=== PATIENT | female | born 1985 | race Caucasian/White ===

== ENCOUNTER 2019-05-12 12:46 | Emergency (ER) | payer MEDICARE, MEDICAID, SELFPAY ==
[2019-05-12 13:01] VITALS: BP 131/76; PULSE 74; RESP 18; TEMP 37.1; O2SAT 97; BMI 22.3
--- NOTE | 2019-05-12 13:09 | ED_ITS ---
Entered by Rika Wang, acting as scribe for Ministerio Marcum DO May 12, 2019 12:46 HPI - Headache General: Chief Complaint: Headache Stated Complaint: H/A Time Seen by Provider: 05/12/19 13:09 PFSH ED PFSH: Social History Smoking and tobacco status: current every day smoker Course Vital Signs: Vital signs: Vital Signs Temperature 98.8 F 05/12/19 13:01 Pulse Rate 74 05/12/19 13:01 Respiratory Rate 18 05/12/19 13:01 Blood Pressure 131/76 05/12/19 13:01 Pulse Oximetry 97 05/12/19 13:01 Coding Level of Care Code ED Decator Operator for Amisha Holliday
--- NOTE | 2019-05-12 13:09 | ED_ITS ---
Entered by Nilda Oconnor, acting as scribe for May 12, 2019 12:46 HPI - Headache General: Chief Complaint: Headache Stated Complaint: H/A Time Seen by Provider: 05/12/19 13:09 History of Present Illness: HPI Narrative: 33 yo female presents to ED with complaints of a headache, nausea and vomiting, The patient states she has not been feeling well and now she has a migraine. Her family states the patient has knots on the back of her neck. The patient states she has a history of migraines and MS. She said today's migraine is similar to those she has had in the past. She said the migraine began about 0700 this morning. MD elicited complaint: migraine Pertinent past history: migraines and other (MS) Onset (ago): hour(s) (6) Time: 07:00 Onset description: suddenly and on awakening Location: diffuse Severity: severe Quality & Timing: throbbing, progressively worsening and similar to previous headaches Exacerbating factors: exertion and movement of head/neck Relieving factors: nothing Context: occurred at rest Associated symptoms: Reports nausea, vomiting and weakness; Deny chest pain, confusion, diaphoresis, fever(s), malaise, pre-syncope, rash or syncope Treatments prior to arrival: none Review of Systems General: Reports: other (negative unless marked) Const: Denies: fever, chills, body aches, fatigue, malaise or diaphoresis Eyes: Denies: change in vision or blurry vision ENMT: Denies: throat pain, painful swallowing, hoarseness, ear pain, ear discharge, Change in hearing or nasal discharge Card: Denies: chest pain, palpitations, irregular heart rhythm, syncope, pre- syncope, shortness of breath on exertion or shortness of breath when lying down Resp: Denies: shortness of breath, productive cough, non-productive cough, wheezing, coughing up blood or chest congestion GI: Reports: nausea and vomiting : Denies: flank pain, painful urination, urinary frequency, urinary urgency, decreased urine ouput, urinary incontinence or blood in urine Musc: Denies: back pain, extremity pain, extremity swelling, joint pain, joint swelling, joint warmth or joint stiffness Skin/Breast: Denies: rash, skin tenderness or yellow skin Neuro: Denies: numbness in extremities, weakness in extremities, changes in sensation, lack of coordination, difficulty walking, dizziness, vertigo or confusion Endo: Denies: excessive thirst, tired all the time, cold intolerance, excessive sweating, flushing or hot flashes Ray/Lymph: Denies: easy bruising, easy bleeding, petechiae or enlarged lymph nodes All/Imm: Denies: hives, throat swelling, tongue swelling, facial swelling or acute wheezing PFSH ED PFSH: Social History Smoking and tobacco status: current every day smoker Physical Exam Const: COMMON NORMALS: oriented x3, no limitations, healthy appearing and well nourished EXAM LIMITATIONS: no altered mental status GENERAL APPEARANCE: cooperative, well kempt and well developed ORIENTATION/CONSCIOUSNESS: Yes awake HENMT: COMMON NORMALS: normocephalic, head/scalp atraumatic, hearing grossly normal bilaterally, external ears normal, EAC's normal, external nose normal and moist oral mucous membranes HEAD & SCALP: normal to inspection, normocephalic and atraumatic FACE & SINUS: normal facial exam and face symmetric NOSE: external nose normal and nares normal EXTERNAL EAR: Yes external ears normal EXTERNAL AUDITORY CANAL: EAC's normal MOUTH: oral and palatal mucosa normal and tongue normal Eye: COMMON NORMALS: PERRL, EOMs intact bilaterally, conjunctivae normal and no scleral icterus GENERAL EYE: normal appearance of both eyes and normal light reflex CONJUNCTIVA: Yes conjunctivae normal SCLERA: sclerae normal CORNEA: Yes corneas normal PUPIL: Yes PERRL DIRECT OPHTHALMOSCOPY: Yes normal light reflex Neck/C-Spine: COMMON NORMALS: full ROM, no lymphadenopathy, supple, no meningeal signs and no JVD GENERAL: Yes normal visual inspection and Yes trachea midline CERVICAL SPINE: Yes cervical ROM normal Chest: COMMONS NORMALS: inspection of chest normal and palpation of chest normal Resp: COMMON NORMALS: normal respiratory effort, no retractions, no use of accessory muscles and clear to auscultation bilaterally EFFORT & INSPECTION: Yes able to speak in complete sentences AUSCULTATION: clear to auscultation bilaterally Cardio: COMMON NORMALS: no JVD, regular rate, regular rhythm, S1 normal heart sound, S2 normal heart sound, no gallops, no clicks, no murmurs and no rub JUGULAR VENOUS DISTENTION: no JVD RATE: regular rate RHYTHM: regular rhythm HEART SOUNDS: S1 normal and S2 normal GI: COMMON NORMALS: soft to palpation, non-tender, no hepatosplenomegaly and no masses INSPECTION: Yes normal to inspection PALPATION: Yes soft and Yes no hepatosplenomegaly : COMMON NORMALS: Yes no CVA tenderness BLADDER/KIDNEY EXAM: Yes no CVA tenderness Back/Pelvis: COMMON NORMALS: no CVA tenderness, thoracic and lumbar spine normal to inspection, no thoracic nor lumbar tenderness and thoraco-lumbar ROM normal Extremity: COMMON NORMALS: normal to inspection, full ROM, normal capillary refill, no joint enlargement, no clubbing, cyanosis or edema and no calf tenderness Neuro: COMMON NORMALS: oriented x3, CN's II-XII intact bilaterally, moves all extremities, no focal motor deficits and no sensory deficits noted MENINGEAL SIGNS: Yes no meningeal signs Psych: COMMON NORMALS: mental status grossly normal, thought process normal, cooperative, affect normal, speech normal and activity/motor behavior normal APPEARANCE: Yes well kempt SPEECH: Yes normal speech THOUGHT PROCESS: normal thought process Skin: COMMON NORMALS: no rashes or lesions noted, skin turgor normal, no jaundice, no petechiae and no mottling GENERAL SKIN EXAM: no rashes or lesions noted and turgor normal Course Vital Signs: Vital signs: Vital Signs Temperature 98.8 F 05/12/19 13:01 Pulse Rate 74 05/12/19 13:01 Respiratory Rate 16 05/12/19 15:59 Blood Pressure 131/76 05/12/19 13:01 Pulse Oximetry 97 05/12/19 13:01 MDM - Headache MDM Narrative: Medical decision making narrative: The patient symptoms have completely resolved at this time. She Mclean has a headache and is no longer nauseated. Her lymphadenopathy which is been going on for quite some time is not caused by mono or strep at this time. The patient has no sign or symptom of retropharyngeal or peritonsillar abscess. She states the lymph nodes of just been present for some time as she is currently under the outpatient work-up for this. She agrees to return should her symptoms change or worsen but at this time she only wants her headache to resolve and now that it has she is ready to be discharged. Lab Data: Labs: Lab Results 05/12/19 05/12/19 05/12/19 Range/Units 13:35 13:43 13:43 WBC 13.1 H (4.0-10.0) 10^3/ uL RBC 4.60 (4.1-5.3) 10^6/u L Hgb 12.9 (11.5-15.3) g/dL Hct 38.8 (37.0-47.0) % MCV 84.3 (81-99) fL MCH 28.0 (28.0-34.0) pg MCHC 33.2 (30.0-36.0) g/dL RDW 12.1 (12.1-15.1) % Plt Count 449 H (130-400) 10^3/c mm MPV 9.1 (7.4-10.4) fL Neut % (Auto) 92.7 % Lymph % (Auto) 4.4 % Gage % (Auto) 2.4 % Eos % (Auto) 0.0 % Baso % (Auto) 0.2 % Neut # (Auto) 12.1 H (1.8-7.7) 10^3/u L Lymph # (Auto) 0.6 L (0.8-4.8) 10^3/u L Gage # (Auto) 0.3 (0.2-0.9) 10^3/u L Eos # (Auto) 0.0 (0.0-0.8) 10^3/u L Baso # (Auto) 0.0 (0.0-0.1) 10^3/u L Nucleated RBC % (a uto) 0 % Nucleated RBCs # 0.0 /100WBC Sodium (136-145) mmol/L Potassium (3.5-5.1) mmol/L Chloride (98-107) mmol/L Carbon Dioxide (22-29) mmol/L Anion Gap (5-19) BUN (6-20) mg/dL Creatinine (0.5-0.9) mg/dL GFR Calculation (90-130) mL/min Glucose (65-115) mg/dL Calculated Osmolal ity (285-295) mOsm/k g Calcium (8.5-10.5) mg/dL Magnesium (1.7-2.3) mg/dL Total Bilirubin (0.15-1.2) mg/dL AST (0-32) U/L ALT (0-33) U/L Alkaline Phosphata se (35-105) IU/L Total Protein (6.6-8.7) g/dL Albumin (3.5-5.2) g/dL Globulin (1.3-4.6) g/dL HCG, Qual (Negative) Monoscreen Negative (Negative) Influenza Type A A g Negative (Negative) POC Influenza B Ag Negative (Negative) Group A Strep Rapi d (Negative) 05/12/19 05/12/19 05/12/19 Range/Units 13:43 13:43 15:25 WBC (4.0-10.0) 10^3/ uL RBC (4.1-5.3) 10^6/u L Hgb (11.5-15.3) g/dL Hct (37.0-47.0) % MCV (81-99) fL MCH (28.0-34.0) pg MCHC (30.0-36.0) g/dL RDW (12.1-15.1) % Plt Count (130-400) 10^3/c mm MPV (7.4-10.4) fL Neut % (Auto) % Lymph % (Auto) % Gage % (Auto) % Eos % (Auto) % Baso % (Auto) % Neut # (Auto) (1.8-7.7) 10^3/u L Lymph # (Auto) (0.8-4.8) 10^3/u L Gage # (Auto) (0.2-0.9) 10^3/u L Eos # (Auto) (0.0-0.8) 10^3/u L Baso # (Auto) (0.0-0.1) 10^3/u L Nucleated RBC % (a uto) % Nucleated RBCs # /100WBC Sodium 135 L (136-145) mmol/L Potassium 3.0 L (3.5-5.1) mmol/L Chloride 92 L (98-107) mmol/L Carbon Dioxide 31 H (22-29) mmol/L Anion Gap 15.0 (5-19) BUN 5 L (6-20) mg/dL Creatinine 0.5 (0.5-0.9) mg/dL GFR Calculation 140.4 H (90-130) mL/min Glucose 162 H (65-115) mg/dL Calculated Osmolal ity 279 L (285-295) mOsm/k g Calcium 9.5 (8.5-10.5) mg/dL Magnesium 2.0 (1.7-2.3) mg/dL Total Bilirubin 0.4 (0.15-1.2) mg/dL AST 13 (0-32) U/L ALT 7 (0-33) U/L Alkaline Phosphata se 91 (35-105) IU/L Total Protein 7.2 (6.6-8.7) g/dL Albumin 4.2 (3.5-5.2) g/dL Globulin 3.0 (1.3-4.6) g/dL HCG, Qual Negative (Negative) Monoscreen (Negative) Influenza Type A A g (Negative) POC Influenza B Ag (Negative) Group A Strep Rapi d Negative (Negative) Imaging Data^: CT Head: Radiologist's impression: [place] [address] CT Scan Report Signed Patient: Gavin Lockhart #: [id number] : 1985Acct#:[id number] Age/Sex: 33 / FADM Date: 05/12/19 Loc: ERRoom/Bed: Attending Dr: Ordering Provider/Ordering MD: Nell Olson DO Date of Service: 05/12/19 Procedure(s): CT head wo con* [id number] Accession Number(s): [id number] Report Number: [id number] WS: [id number] CT HEAD TECHNIQUE: Noncontrast CT of the head obtained from the skullbase to the vertex. CLINICAL INFORMATION: MARTINEZ/AMS COMPARISON: Multiple prior MRIs including most recent MRI head August 01, 2014 DLP: 730.[address] scans at [facility] use at least one of these dose optimization techniques: automated exposure control; mA and/or kV adjustment per patient size (includes targeted exams where dose is matched to clinical indication); or iterative reconstruction. FINDINGS: No evidence of intracranial hemorrhage or mass effect. Ventricular system and basal cisterns are patent. Normal che-white differentiation. Mild demyelinating disease better visualized on prior MRI. No hydrocephalus. No evidence of mass or mass effect. Incidental slightly low-lying cerebellar tonsils. Paranasal sinuses and mastoid air cells are well aerated. .Normal visualized soft tissues. Notified Nell Olson at 05/12/2019 4:[address]/CT head wo con* [id number] IMPRESSION: 1. No evidence of intracranial hemorrhage or mass effect. 2. Normal che-white differentiation. 3. Mild demyelinating disease better visualized on prior MRI. 4. Incidental slightly low-lying cerebellar tonsils. 5. No hydrocephalus. 6. No acute intracranial findings. Dictated By:Bryson West MD Signed By:Bryson West MDSigned Date/Time:05/12/19 1626 DD/ Discharge Plan Discharge Patient Disposition: Home, Self-Care Clinical Impression: Lymphadenopathy of head and neck Migraine Qualifiers: Migraine type: without aura Status migrainosus presence: without status migrainosus Intractability: not intractable Qualified Code(s): G43.009 - Migraine without aura, not intractable, without status migrainosus Condition: Stable Prescriptions: No Action venlafaxine 100 mg tablet See Rx Instructions .ROUTE .COMPLEX RF: 0 baclofen 10 mg tablet 10 mg PO DAILY RF: 0 rizatriptan 10 mg tablet,disintegrating See Rx Instructions .ROUTE .COMPLEX RF: 0 promethazine 25 mg tablet See Rx Instructions .ROUTE .COMPLEX RF: 0 buspirone 15 mg tablet 15 mg PO BID RF: 0 Mavenclad (6 tablet pack) 10 mg tablet See Rx Instructions .ROUTE .COMPLEX RF: 0 Discharge Orders: Discharge Order (Routine); Ordered 05/12/19 Ordered By: Nell Olson Referrals: Juan Antonio Freedman [Primary Care Provider] - 1-3 days Discharge Diet: Advance as tolerated Discharge Activity: Increase activity as tolerated Patient Instructions: Migraine Headache (ED), Lymphadenopathy (ED), Acute Headache (ED) Activity Restrictions/Additional Instructions: Please return to the ER immediately for any of the signs or symptoms listed on your discharge instruction sheets, worsening/changing of your symptoms, you are not getting better as quickly as expected, or for ANY other cause or concerns. Be certain to follow-up with your doctor for further evaluation of the lymphadenopathy in your neck. Coding Level of Care Code ED Farm Machine Tender for Chg Fwd Exam Comprehensive The documentation recorded by the Anastasia kruger Valerie R, accurately reflects the service I personally performed and the decisions made by me, Nell Olson May 12, 2019 12:46
[2019-05-12 13:58] VITALS: RESP 15
[2019-05-12] MEDS: sodium chloride 0.9% 1,000 ML 100 ML IV (14:06)
[2019-05-12] MEDS: diphenhydrAMINE 50 mg/mL SDV 1mL 25 MG IVP (14:07)
[2019-05-12] MEDS: metoclopramide 5 mg/mL SDV 2 mL 10 MG IV (14:07)
[2019-05-12 14:10] LABS: Basophils % 0.2 %; Hematocrit 38.8 % (37.0-47.0); Hemoglobin 12.9 g/dL (11.5-15.3); Lymphocytes # 0.6 10^3/uL (0.8-4.8); Lymphocytes % 4.4 %; Mean Corpuscular HGB Conc 33.2 g/dL (30.0-36.0); Mean Corpuscular Volume 84.3 fL (81-99); Mean Platelet Volume 9.1 fL (7.4-10.4); Monocytes # 0.3 10^3/uL (0.2-0.9); Monocytes % 2.4 %; Neutrophils # 12.1 10^3/uL (1.8-7.7); Neutrophils % 92.7 %; Nucleated Red Blood Cells % 0 %; Platelet Count 449 10^3/cmm (130-400); Red Cell Distribution Width 12.1 % (12.1-15.1); White Blood Count 13.1 10^3/uL (4.0-10.0)
[2019-05-12 14:22] LABS: HCG, Serum Qual Negative (Negative)
[2019-05-12 14:23] LABS: Monoscreen Negative (Negative)
[2019-05-12 14:24] LABS: Alanine Aminotransferase 7 U/L (0-33); Albumin Level 4.2 g/dL (3.5-5.2); Alkaline Phosphatase 91 IU/L (35-105); Aspartate Amino Transferase 13 U/L (0-32); Blood Urea Nitrogen 5 mg/dL (6-20); Calcium 9.5 mg/dL (8.5-10.5); Carbon Dioxide 31 mmol/L (22-29); Chloride 92 mmol/L (98-107); Creatinine Clr Calc Pharmacy 139.8419; Glomerular Filtration Rate 140.4 mL/min (90-130); Glucose 162 mg/dL (65-115); Osmolality Calculated 279 mOsm/kg (285-295); Sodium 135 mmol/L (136-145); Total Bilirubin 0.4 mg/dL (0.15-1.2); Total Protein 7.2 g/dL (6.6-8.7)
--- NOTE | 2019-05-12 14:30 | CT_ITS ---
WS: [id number] CT HEAD TECHNIQUE: Noncontrast CT of the head obtained from the skullbase to the vertex. CLINICAL INFORMATION: MARTINEZ/AMS COMPARISON: Multiple prior MRIs including most recent MRI head August 01, 2014 DLP: 730.[address] scans at [facility] use at least one of these dose optimization techniques: automat ed exposure control; mA and/or kV adjustment per patient size (includes targeted exams where dose is matched to clinical indication); or iterative reconstruction. FINDINGS: No evidence of intracranial hemorrhage or mass effect. Ventricular system and basal cisterns are titus nt. Normal che-white differentiation. Mild demyelinating disease better visualized on prior MRI. No hydrocephalus. No evidence of mass or mass effect. Incidental slightly low-lying cerebellar tonsils. Paranasal sinuses and mastoid air cells are well aerated. .Normal visualized soft tissues. Notified Nell Olson at 05/12/2019 4:[address]/CT head wo con* [id number] IMPRESSION: 1. No evidence of intracranial hemorrhage or mass effect. 2. Normal che-white differentiation. 3. Mild demyelinating disease better visualized on prior MRI. 4. Incidental slightly low-lying cerebellar tonsils. 5. No hydrocephalus. 6. No acute intracranial findings.
[2019-05-12 14:35] LABS: Influenza A by IFA Negative (Negative); Influenza B by IFA Negative (Negative)
[2019-05-12 15:00] VITALS: RESP 16
[2019-05-12] MEDS: haloperidol inj 5 mg/mL INJ 1 mL IM (15:16)
[2019-05-12] MEDS: diphenhydrAMINE 50 mg/mL SDV 1mL 12.5 MG IVP (15:18)
[2019-05-12 15:59] VITALS: RESP 16
[2019-05-12 16:01] LABS: Rapid Strep A Test Negative (Negative)
[2019-05-12 17:31] VITALS: BP 103/62; PULSE 90; RESP 14; O2SAT 92
--- NOTE | 2019-05-13 10:09 | DCPLANNER ---
university manager had message to speak with patient about getting established with a primary care physician. university manager spoke with patient, she stated that she would like to see someone in the [place] area. Mervin laird called the [facility] clinic, a follow up appointment was scheduled for , May 19, 2019 at 1:20 with Gavi. university manager called patient to inform patient of the scheduled appointment. university manager left a voicemail for patient to return complex case manager phone call.
--- NOTE | 2019-05-27 09:23 | DCPLANNER ---
Patient did attend appointment scheduled for 05.19.19 at the [facility].
== END 2019-05-12 17:32 | disposition home or self-care (01) ==
PROVIDERS: Emergency Provider Emergency Medicine; Family Provider Physician Assistant; PCP Physician Assistant
DX: G43.909 Migraine, unspecified, not intractable, without status migrainosus (principal); R59.0 Localized enlarged lymph nodes; F17.200 Nicotine dependence, unspecified, uncomplicated
CPT/HCPCS: 12345; 36415; 70450; 80053; 83735; 84703; 85025; 86308; 87081; 87804; 87880; 96360; 96361; 96365; 96366; 96372; 96375; 96376; 99283; 99284; A9270; J0131; J1200; J1630; J2765; J3480; J7030

== ENCOUNTER 2019-07-26 13:01 | Outpatient (CLI) | payer OTHER, MEDICAID, SELFPAY ==
--- NOTE | 2019-07-26 13:31 | MR_ITS ---
WS: [id number] MRI HEAD WITHOUT AND WITH CONTRAST TECHNIQUE: Sagittal T1, T2 axial, T2 axial FLAIR, axial susceptibility weighted imaging, axial diffus ion weighted images, and coronal T2 images were obtained. Pre and post-T1 axial and post T1 coronal i mages. ADC and FSPGR images. CLINICAL INFORMATION: MULTIPLE SCLEROSIS COMPARISON: CT May 12, 2019 and MRI 08/01/2014 and 06/01/2013 FINDINGS: Some images are limited by motion. No evidence of restricted diffusion to suggest acute ischemia. Ventricular system and basal cisterns are patent. Mild patchy supratentorial and periventricular white matter changes consistent with histo ry of demyelinating disease. New T2 hyperintense lesion involving the splenium of the corpus callosum on the right. This appears new since 2014 but no enhancement in this area. No enhancing lesions to i ndicate active disease. No significant infratentorial white matter changes. Normal optic chiasm and pituitary infundibulum. Temporal lobes and hippocampal formations demonstrate mild symmetric atrophy. Proximal 7th and 8th cranial nerves appear normal. No significant atrophy of the corpus callosum. No hemosiderin on susceptibly weighted images. Mild T1 hypointense lesion load. MR/MR head wo/w con [id number] IMPRESSION: 1. Mild supratentorial white matter changes consistent with demyelinating dise ase. 2. New lesion involving the splenium of the corpus callosum on the right. No e nhancement to indicate active disease. 3. No enhancing lesions to indicate active disease. 4. Normal optic chiasm and pituitary infundibulum. 5. No significant parenchymal volume loss. No significant atrophy of the corpu s callosum. 6. Mild T1 hypointense lesion load.
--- NOTE | 2019-07-26 13:31 | MR_ITS ---
WS: [id number] MRI THORACIC SPINE WITHOUT AND WITH CONTRAST TECHNIQUE: Sagittal T1, T2 and STIR imaging. Axial T2 imaging. Post gadolinium imaging was obtained. CLINICAL INFORMATION: MULTIPLE SCLEROSIS COMPARISON: MRI August 01, 2014 and 2012 FINDINGS: Images moderately degraded by motion. Mild thoracic kyphosis. No acute compression. No high-grade central canal stenosis. Normal CSF pulsat ion artifact in the dorsal spinal canal. Multiple chronic demyelinating plaques scattered throughout the thoracic cord appears progressed since 2014. No significant cord atrophy. No enhancing lesions to indicate active disease. Eccentric T2 hyperintense lesions more prominent at right T3, ventral midli ne T4-5, left T6, and right T9. No high-grade central canal or foraminal narrowing. Mild facet arthropathy lower thoracic spine. Norm al caliber thoracic aorta. MR/MR thoracic spine wo/w [id number] IMPRESSION: 1. Multiple scattered T2 hyperintense demyelinating lesions throughout the tho racic cord appears progressed since 2014 with increased lesion load. 2. No abnormal gadolinium enhancement to indicate active disease. 3. No significant cord atrophy. 4. No significant spinal canal or foraminal narrowing.
--- NOTE | 2019-07-26 13:31 | MR_ITS ---
WS: [id number] MRI CERVICAL SPINE NONCONTRAST AND CONTRAST TECHNIQUE: Sagittal T1, T2 and STIR imaging. Axial T2, gradient, and fiesta imaging. CLINICAL INFORMATION: MULTIPLE SCLEROSIS COMPARISON: MRI 08/01/2014 and 11/17/2013 MRI 2013 FINDINGS: Some images degraded by motion. Normal thoracic alignment. No high-grade central canal stenosis. Chronic appearing demyelinating plaq ues in the cervical spine unchanged in appearance more prominent at C2, C3, and C5. No abnormal gadol inium enhancement to indicate active disease. No significant cord atrophy. No new lesions. C2-C3: Normal. C3-C4: Mild osteophytic ridging. Mild right and no significant left foraminal narrowing. Mild facet a rthropathy. C4-C5: Mild right bony foraminal narrowing. Mild/moderate facet arthropathy. Spinal canal and foramen are patent. C5-C6: No significant disc bulging. Mild osteophytic ridging. Mild right greater than left foraminal narrowing. Mild facet arthropathy. C6-C7: Mild disc osteophyte complex with endplate ridging. Mild right greater than left bony foramina l narrowing. Spinal canal is patent. Mild facet arthropathy. C7-T1: Normal. Visualized brain stem structures: Normal. Prevertebral soft tissues: Normal. MR/MR cervical spine wo/w [id number] IMPRESSION: 1. A few scattered chronic demyelinating plaques unchanged since the prior exa mination. No new lesions. 2. No abnormal gadolinium enhancement to indicate active demyelinating disease . 3. No significant cord atrophy. 4. Mild disc osteophyte complex C6-C7 with mild right greater than left bony f oraminal narrowing. Mild facet arthropathy.
== END 2019-07-26 13:02 | disposition home or self-care (01) ==
LOC: RADWPI 13:09
PROVIDERS: Family Provider Physician Assistant; PCP Nurse Practitioner; Visit Provider Nurse Practitioner Family
DX: G35 Multiple sclerosis (principal); M25.78 Osteophyte, vertebrae
CPT/HCPCS: 70553; 72156; 72157; A9579

== ENCOUNTER → 2019-08-02 11:21 | Outpatient (BNVA) | payer OTHER, MEDICARE, SELFPAY | PROVIDERS: Family Provider Physician Assistant; PCP Nurse Practitioner; Visit Provider Nurse Practitioner Family | DX: E04.1 Nontoxic single thyroid nodule (principal); M54.2 Cervicalgia; R73.09 Other abnormal glucose; B37.0 Candidal stomatitis; E87.6 Hypokalemia | CPT/HCPCS: 80053; 83036; 84439; 84443; 85025 ==

== ENCOUNTER 2019-08-10 08:11 | Outpatient (CLI) | payer OTHER, SELFPAY ==
--- NOTE | 2019-08-10 08:00 | US_ITS ---
WS: [id number] THYROID ULTRASOUND HISTORY: neck pain, thyroid nodule COMPARISON: None available. Right lobe: 4.7 cm x 1.4 cm x 1.7 cm. Volume: 5.7 cm3. Normal size and echotexture. No significant are dominant nodules are present. Left lobe: 4.7 cm x 1.3 cm x 1.3 cm. Volume: 4.2 cm3. Normal size and echotexture. No significant or dominant nodules are present. Isthmus: 0.2 cm. Palpable area corresponds to benign lymph node in the LEFT neck. US/US thyroid [id number] IMPRESSION: Normal thyroid ultrasound.
== END 2019-08-10 08:12 | disposition home or self-care (01) ==
LOC: RAD 08:15
PROVIDERS: Family Provider Physician Assistant; PCP Nurse Practitioner; Visit Provider Nurse Practitioner Family
DX: M54.2 Cervicalgia (principal); E04.1 Nontoxic single thyroid nodule
CPT/HCPCS: 76536

== ENCOUNTER → 2019-11-28 14:35 | Outpatient (BNVA) | payer MEDICARE, SELFPAY | PROVIDERS: Family Provider Physician Assistant; PCP Nurse Practitioner; Visit Provider Nurse Practitioner Family | DX: E55.9 Vitamin D deficiency, unspecified (principal); E56.9 Vitamin deficiency, unspecified; F17.200 Nicotine dependence, unspecified, uncomplicated; R11.2 Nausea with vomiting, unspecified; R63.4 Abnormal weight loss; R79.89 Other specified abnormal findings of blood chemistry; Z79.899 Other long term (current) drug therapy | CPT/HCPCS: 71046; 80053; 80307; 81000; 81025; 82306; 82607; 84439; 84443 ==

== ENCOUNTER → 2020-03-07 09:35 | Outpatient (BNVA) | payer MEDICARE, SELFPAY | PROVIDERS: Family Provider Physician Assistant; PCP Nurse Practitioner; Visit Provider Family Medicine | DX: R10.2 Pelvic and perineal pain (principal); R30.0 Dysuria; G35 Multiple sclerosis; N92.6 Irregular menstruation, unspecified | CPT/HCPCS: 81000; 87086 ==

== ENCOUNTER → 2020-04-23 13:50 | Outpatient (BNVA) | payer MEDICARE, SELFPAY | PROVIDERS: Family Provider Physician Assistant; PCP Nurse Practitioner; Visit Provider Obstetrics & Gynecology | DX: N92.6 Irregular menstruation, unspecified (principal); N92.0 Excessive and frequent menstruation with regular cycle | CPT/HCPCS: 83036; 84443; 85025; 88175 ==

== ENCOUNTER → 2020-05-07 15:53 | Outpatient (BNVA) | payer MEDICARE, SELFPAY | PROVIDERS: Family Provider Physician Assistant; PCP Nurse Practitioner; Visit Provider Obstetrics & Gynecology | DX: N92.0 Excessive and frequent menstruation with regular cycle (principal); N94.10 Unspecified dyspareunia; N83.201 Unspecified ovarian cyst, right side | CPT/HCPCS: 76830 ==

== ENCOUNTER → 2020-05-21 15:30 | Outpatient (BNVA) | payer MEDICARE, SELFPAY | PROVIDERS: Family Provider Physician Assistant; PCP Nurse Practitioner; Visit Provider Obstetrics & Gynecology | DX: N92.0 Excessive and frequent menstruation with regular cycle (principal) | CPT/HCPCS: 88305 ==

== ENCOUNTER → 2020-06-15 14:59 | Outpatient (BNVA) | payer MEDICARE, SELFPAY | PROVIDERS: Family Provider Physician Assistant; PCP Nurse Practitioner; Visit Provider Obstetrics & Gynecology | DX: N92.0 Excessive and frequent menstruation with regular cycle (principal); Z20.822 Contact with and (suspected) exposure to COVID-19 | CPT/HCPCS: 87635 ==

== ENCOUNTER 2020-06-21 16:57 | Observation (INO) | payer MEDICARE, SELFPAY ==
[2020-06-18 12:02] VITALS: BMI 19.5
--- NOTE | 2020-06-18 12:24 | ANES.PREANE2 ---
Pre-Anesthetic Assessment Pre-Anesthetic Assessment: Height/Weight: Height 1.6 m Weight 49.895 kg Preop Diagnosis: menorrhagia, dyspareunia, irregular menses, dysmenorrhea, MS Proposed Procedure: Operation Date: 06/21/20 09:25 Proposed Procedures p Laparoscopic Assist Vaginal Hystectomy 75111 n92.0 g35(Not Applicable) - Nasreen Bosch MD s Laparoscopic Salpingo Oophorectomy(Not Applicable) - Nasreen Bosch MD Was Beta Joanna taken within 24 hours: N/A Was Clonidine taken within 24 hours: N/A Social: Social History: Tobacco and No alcohol Exam: Pre-Anes Outpt Exam: alert, oriented x 3 and regular rate & rhythm Airway: Submandibular: WNL Cervical ROM: WNL MP: 2 Additional comments: Poor dentition Metabolic: Metabolic: Thyroid Neuropsych: Neuropsych: Anxiety, Depression and MARTINEZ Comments: MS Anesthetic Plan: ASA status: 2 Anesthesia: General Risk of > 500 ml blood loss (7ml/kg in children): No PFSH Anesthesia PFSH: Medical History Multiple sclerosis Family History Grandmother Breast cancer paternal, had twice Ovarian cancer maternal Father Hypertension Hyperlipidemia Heart disease Anesthesia complication allergic Stroke Mother Ovarian cyst Denies family history of Colon cancer Diabetes Hypercholesteremia Bleeding disorder Uterine cancer Thyroid disease Social History (Updated 06/13/20 @ 15:07 by Abeba Coffman LPN) Smoking and tobacco status: current every day smoker cigarettes Alcohol intake: never Data Anesthesia Cardiac Studies: No Data to Display
[2020-06-21] VITALS (18 sets, daily range): BP systolic 120–183; BP diastolic 60–119; PULSE 60–91; RESP 12–26; TEMP 36.4–36.7; O2SAT 92–100
[2020-06-21] MEDS: ketorolac 30 mg/mL INJ IVP ×2 (11:11→22:48)
[2020-06-21] MEDS: lactated ringers 500 ML IV (11:12)
[2020-06-21] MEDS: acetaminophen 1,000 MG/100 ML PIGGYBACK 400 MG IV (11:12)
[2020-06-21] MEDS: CELEcoxib 200 mg Capsule 400 MG PO (11:12)
[2020-06-21] MEDS: gabapentin 300 mg Capsule PO (11:12)
[2020-06-21] MEDS: scopolamine 1.5 Patch 1 PATCH TRANSDERMA (11:18)
--- NOTE | 2020-06-21 12:28 | P.ANESUD_ITS ---
Pre-Anesthetic Update Pre-Anesthetic Assessment: Date of Surgery/Procedure: 06/21/20 Preop Della gnosis: menorrhagia, dyspareunia, irregular menses, dysmenorrhea, MS Proposed Procedure: Operation Date: 06/21/20 12:15 Proposed Procedures p Laparoscopic Assist Vaginal Hystectomy 45085 n92.0 g35(Not Applicable) - Nasreen Bosch MD s Laparoscopic Salpingo Oophorectomy(Not Applicable) - Nasreen Bosch MD Any changes to Pre-Anesthetic Assessment?: No Last Intake: Intake Last Liquid Date 06/20/20 Last Liquid Time 20:00 Last Solid Date 06/20/20 Last Solid Time 20:00 Vitals: Temperature 98.0 F 06/21/20 10:56 Temperature Source Temporal Artery S can 06/21/20 10:56 Pulse Rate 68 06/21/20 10:56 Respiratory Rate 18 06/21/20 10:56 Blood Pressure 153/82 06/21/20 10:56 Blood Pressure Jenni n 105 06/21/20 10:56 Pulse Oximetry 97 06/21/20 10:56 Oxygen Delivery Me thod 06/21/20 10:58 Exam: Pre-Anes Outpt Exam: alert, oriented x 3, clear to auscultation bilaterally and regular rate & rhythm Cardiac Studies: No Data to Display
--- NOTE | 2020-06-21 14:39 | W.PM.OPSUD ---
Surgery/Procedure H&P Update DATE OF PROCEDURE: June 21, 2020 DATE H&P PERFORMED: 06/13/20 H&P UPDATE INFORMATION: I have reviewed H&P completed within last 30 days, I have examined patient prior to procedure and No changes to prior documentation PREOP DIAGNOSIS: menorrhagia, dyspareunia, irregular menses, dysmenorrhea, MS PLANNED PROCEDURE: Operation Date: 06/21/20 12:15 Proposed Procedures p Laparoscopic Assist Vaginal Hystectomy 58396 n92.0 g35(Not Applicable) - Nasreen Bosch MD s Laparoscopic Salpingo Oophorectomy(Not Applicable) - Nasreen Bosch MD
[2020-06-21] MEDS: vasopressin 20 unit/mL INJ INJECTION (15:24)
--- NOTE | 2020-06-21 16:43 | P.OP_ITS ---
Operative Report Date of procedure: June 21, 2020 Pre-op Diagnosis: menorrhagia, dyspareunia, irregular menses, dysmenorrhea, MS Post-op diagnosis: same Post-op Findings: normal appearing uterus, tubes and ovaries Procedure Done: Total vaginal hysterectomy with bilateral salpingoophorectomy Specimens removed/disposition: uterus and bilateral ovaries and fallopian tubes Surgeon: Nasreen Bosch Anesthesia: General Estimated blood loss (mL): 125 IV fluids (mL): 2,000 Urine output (mL): 400 Complications: none Findings: normal appearing uterus, tubes and ovaries Condition: stable Disposition: floor Procedure: Prior to the induction of anesthesia, I spoke with the patient about performing a total vaginal hysterectomy and removing her bilateral tubes and ovaries vaginally. If I was unable to get the tubes and ovaries vaginally then I would make incisions in her abdomen and remove them after I did her hysterectomy. She was fine with that. The patient is tiny that I thought that I would be able to get the tubes and ovaries vaginally. The patient was taken to the operating room where general anesthesia was administered and found to be adequate. She was prepped and draped in the normal sterile fashion in the dorsal lithotomy position in [facility]. A weighted speculum was placed into the vagina and the anterior lip of the cervix grasped with a Alston tenaculum. Catheter was placed and clear urine returned. 5 mL of dilute Pitressin were injected at the vesicovaginal junction. A circumferential incision was made at the vesicovaginal junction and carried down to the cervix. The vaginal Mucosa was reflected cephalad. The posterior peritoneum was entered sharply with the Metzenbaum scissors. The long weighted speculum was placed. The uterosacral ligaments were clamped cut and suture ligated and tagged. The uterine arteries and cardinal ligaments were clamped cut and suture-ligated. The specimen was delivered and the utero-ovarian ligaments clamped cut and suture-ligated bilaterally. And the entire specimen removed. A Chester clamp was used to clamp the tube and ovary on the right first. A Daren clamp was placed lateral to them and they were removed with Dickinson scissors. The pedicle w as suture ligated doubly. The left tube and ovary were removed in the similar fashion they were grasped with a Chester clamp a Daren clamp was placed lateral to the tube and ovary and the tube and ovary cut with the Dickinson scissors and removed. This pedicle was also doubly ligated. There was excellent hemostasis post removal of her uterus tubes and ovaries. The peritoneum was closed with 0 Vicryl in a running pursestring fashion. The vaginal cuff was closed with 0 Vicryl in a running locked fashion incorporating the uterosacral ligaments into the lateral aspect of the vaginal cuff. Methylene blue was given IV and the cystoscope advanced into the bladder. The bladder was intact and the ureteral orifices identified. I waited for approximately 20 minutes and no blue was seen coming from the ureteral orifices but they were peristalsing well. 10 mg of Lasix was given IV and approximately 10 minutes later another 10 was given and still no blue. I saw both ureteral orifices peristalsis at least 15 times each and found that to be adequate. The Dugan catheter was replaced packing was placed into the vagina. All instruments were removed. The patient tolerated the procedure well. Sponge lap and needle counts were correct x3. She was taken to the recovery room in stable condition. All of the fluid from the cystoscopy was drained prior to leaving for the recovery room and by the time that she arrived into the recovery room there was already 300 of clear urine out. It was still not blue.
[2020-06-21] MEDS: fentaNYL 50 mcg/mL INJ 2mL IVP ×2 (17:01→17:06)
[2020-06-21] MEDS: ondansetron 2 mg/ML SDV 2 mL 4 MG IVP ×3 (17:09→20:41)
--- NOTE | 2020-06-21 17:09 | ANE.PACU2 ---
Inpatient post-anesthesia follow up: Airway intact: Yes Vital signs: Temperature 97.6 F Pulse Rate 88 Respiratory Rate 12 Blood Pressure 168/107 Pulse Oximetry 100 Oxygen Delivery Me thod Simple Mask Oxygen Flow Rate 8 Fraction of Inspir ed Oxygen Hydration adequate: Yes Nausea and vomiting: No Pain level: 2 Mental status: Baseline
[2020-06-21] MEDS: metoclopramide 5 mg/mL SDV 2 mL 10 MG IVP ×2 (17:19→17:33)
[2020-06-21] MEDS: dextrose 5%-lactated ringers 1,000 ML 125 ML IV (18:20)
--- NOTE | 2020-06-21 19:00 | PC.NURSE ---
Patient to floor from PACU, vital signs obtained and SPO2 noted to be 78%, patient encouraged to take deep breaths, 02 up to 86% so patient placed on 2L NC and o2 up to 96%.
[2020-06-21] MEDS: HYDROcodone-acetaminophen 5-325 mg Tablet PO (20:42)
[2020-06-21] MEDS: docusate sodium 100 mg Capsule PO (20:42)
[2020-06-21] MEDS: alum-mag-hydroxide-sime 30 mL UDC PO (22:48)
[2020-06-22 02:00] VITALS: BP 108/60; PULSE 64; RESP 15; TEMP 36.9; O2SAT 98
[2020-06-22] MEDS: dextrose 5%-lactated ringers 1,000 ML 125 ML IV (02:43)
[2020-06-22 05:14] LABS: Hematocrit 31.7 % (37.0-47.0); Hemoglobin 10.8 g/dL (11.5-15.3); Mean Corpuscular HGB Conc 34.1 g/dL (30.0-36.0); Mean Corpuscular Hemoglobin 31.3 pg (28.0-34.0); Mean Corpuscular Volume 91.9 fL (81-99); Mean Platelet Volume 8.9 fL (7.4-10.4); Platelet Count 250 10^3/cmm (130-400); Red Blood Count 3.45 10^6/uL (4.1-5.3); Red Cell Distribution Width 11.9 % (12.1-15.1); White Blood Count 8.1 10^3/uL (4.0-10.0)
[2020-06-22] MEDS: ketorolac 30 mg/mL INJ IVP (05:58)
[2020-06-22 06:00] VITALS: BP 134/72; PULSE 62; RESP 16; TEMP 36.9
[2020-06-22] MEDS: HYDROcodone-acetaminophen 5-325 mg Tablet PO ×2 (07:59→12:23)
[2020-06-22] MEDS: docusate sodium 100 mg Capsule PO (07:59)
[2020-06-22] MEDS: ibuprofen 800 mg tablet PO (08:37)
[2020-06-22] MEDS: levothyroxine 100 mcg Tablet PO (08:37)
[2020-06-22] MEDS: pregabalin 75 mg Capsule PO (09:11)
[2020-06-22 09:12] VITALS: BP 125/81; PULSE 79; RESP 16; TEMP 36.7
[2020-06-22] MEDS: simethicone 80 mg Chew PO (09:15)
--- NOTE | 2020-06-22 10:35 | PM.DCS ---
Discharge Providers Date of Admission: 06/21/20 16:57 Date of Discharge: June 22, 2020 Attending Provider at Admission: Nasreen Bosch MD Attending Provider at Discharge: Nasreen Bosch MD Primary Care Provider: Gavi Escobedo NP Diagnoses at Discharge Discharge Diagnosis (1) Postoperative state: Status: Acute Reason for Visit Reason for Visit: Laparoscopic assisted vaginal hysterectomy with bi Hospital Course Hospital Course The patient was admitted for surgery. She did well postoperatively and was ready for discharge on day #1 Physical Exam Const: COMMON NORMALS: no acute distress, average body habitus, patient oriented x3, no limitations, healthy appearing, alert and well nourished GENERAL APPEARANCE: cooperative, comfortable, well kempt and well developed ORIENTATION/CONSCIOUSNESS: Yes awake, Yes oriented to person, Yes oriented to place and Yes oriented to time Resp: COMMON NORMALS: normal respiratory effort EFFORT & INSPECTION: Yes able to speak in complete sentences GI: COMMON NORMALS: Soft to palpation and non-tender INSPECTION: Yes normal to inspection PALPATION: Yes Soft to palpation : COMMON NORMALS: Yes normal external appearance and Yes normal appearance of the vagina SPECULUM EXAM - VAGINA: Yes other (packing removed) Extremity: COMMON NORMALS: no clubbing, cyanosis or edema Neuro: COMMON NORMALS: patient oriented x3 SENSORIUM/ORIENTATION: Yes alert, Yes oriented to person, Yes oriented to place and Yes oriented to time Psych: COMMON NORMALS: mental status grossly normal, Normal thought process present, cooperative, normal affect and speech normal APPEARANCE: Yes grossly normal and Yes well kempt ATTITUDE: Yes calm and Yes engaged ACTIVITY/MOTOR BEHAVIOR: Yes appropriate eye contact SPEECH: Yes normal speech THOUGHT PROCESS: Normal thought process present Urinary Catheter Management^: F: Cath Placed During This Visit: yes Reason for Continuing Indwelling Catheter: Perioperative Use in Selected Surgeries Urinary Catheter Date of Insertion: 06/21/20 Urinary Catheter Time of Insertion: 14:40 Discharge Data Data Completed and Pending: Pending at discharge Category Date Time Status ES surgery / GI i mages Routine Exams 06/21/20 14:24 Ordered ORHCG [OR HCG Kojo litative Urine] St at Lab 06/21/20 10:54 Ordered Pathology: Surgic al [PTH] Routine Pth 06/21/20 16:59 Ordered Labs from last 24 hours 06/22/20 05:00 WBC 8.1 RBC 3.45 L Hgb 10.8 L Hct 31.7 L MCV 91.9 MCH 31.3 MCHC 34.1 RDW 11.9 L Plt Count 250 MPV 8.9 Vitals: Last Vital Signs Temp 98.1 F 06/22/20 09:12 Pulse 79 06/22/20 09:12 Resp 16 06/22/20 09:12 BP 125/81 06/22/20 09:12 Pulse Ox 98 06/22/20 02:00 Discharge Plan Discharge Patient Disposition: Home Condition: Stable Prescriptions: New hydrocodone-acetaminophen 5-325 mg Tablet 1 tab PO Q4H PRN (Reason: Moderate To Severe Pain) Qty: 20 RF: 0 Continued Azo Urinary Pain Relief 99.5 mg tablet 99.5 mg PO TID PRN (Reason: pain) Qty: 21 RF: 0 diazepam [Valium] 10 mg tablet 10 mg PO BEDTIME PRN (Reason: Anxiety) RF: 0 ondansetron HCl [Zofran] 4 mg tablet 4 mg PO Q8H PRN (Reason: nausea) RF: 0 levothyroxine [Synthroid] 100 mcg tablet 100 mcg PO DAILY Qty: 90 RF: 4 baclofen 10 mg tablet 10 mg PO DAILY RF: 0 rizatriptan 10 mg tablet,disintegrating See Rx Instructions .ROUTE .COMPLEX RF: 0 promethazine 25 mg tablet See Rx Instructions .ROUTE .COMPLEX RF: 0 venlafaxine 100 mg tablet See Rx Instructions .ROUTE .COMPLEX RF: 0 pregabalin 75 mg capsule 75 mg PO DAILY RF: 0 Discharge Orders: Discharge Order (Routine); Ordered 06/22/20 Ordered By: Nasreen Bosch Patient Instructions: Opioid Safety Discharge Attestations Time Spent in Discharge Care*: less than 30 min Quality Metrics Clinical Quality Measures During this hospital stay, did patient experience: None Coding Level of Care Code Acute Chg FW DC note Diagnoses Postoperative state Z98.890
--- NOTE | 2020-06-22 10:38 | P.PN_ITS ---
Subjective Subjective: Interval history: The patient is doing well this morning. no concerns. erickson catheter and packing removed. Patient is tolerating a regular diet, ambulating and urinating without difficulty. Pain is well controlled. Vitals/I&O/Wt Last Vital Signs Temp 98.1 F 06/22/20 09:12 Pulse 79 06/22/20 09:12 Resp 16 06/22/20 09:12 BP 125/81 06/22/20 09:12 Pulse Ox 98 06/22/20 02:00 06/21/20 06/22/20 06/22/20 22:59 06:59 14:59 Intake Total 50 / 700 1000 / 1700 Output Total 1525 / 1525 800 / 2325 Balance -1475 / -825 200 / -625 Physical Exam Urinary Catheter Management^: F: Cath Placed During This Visit: yes Reason for Continuing Indwelling Catheter: Perioperative Use in Selected Surgeries Urinary Catheter Date of Insertion: 06/21/20 Urinary Catheter Time of Insertion: 14:40 Data : 06/22/20 05:00 Attestations Medical Necessity Statement*: patient was admitted for observation and being discharged today Coding Level of Care Code Acute [employer] for [employer]
[2020-06-22 12:25] VITALS: BP 134/71; PULSE 69; RESP 16; TEMP 36.7
--- NOTE | 2020-06-22 17:57 | PC.RESP ---
Smoking Cessation information sent to patient.
== END 2020-06-22 12:25 | disposition home or self-care (01) ==
LOC: OBGYN 16:58
PROVIDERS: Admitting Provider Obstetrics & Gynecology; PCP Nurse Practitioner Family; Visit Provider Obstetrics & Gynecology
PROC: (CPT 58262; principal; 2020-06-21 12:05)
DX: N92.1 Excessive and frequent menstruation with irregular cycle (principal); N94.10 Unspecified dyspareunia; N94.6 Dysmenorrhea, unspecified; G35 Multiple sclerosis; F17.210 Nicotine dependence, cigarettes, uncomplicated
CPT/HCPCS: 58262; 36415; 81025; 85027; 88307; 96365; 96374; G0378; J0690; J1100; J1885; J1940; J2250; J2405; J2704; J2765; J3010; J3490

== ENCOUNTER → 2020-07-10 15:22 | Outpatient (BNVA) | payer MEDICARE, SELFPAY | PROVIDERS: PCP Nurse Practitioner Family; Visit Provider Obstetrics & Gynecology | DX: R39.89 Other symptoms and signs involving the genitourinary system (principal); R30.0 Dysuria; R10.2 Pelvic and perineal pain | CPT/HCPCS: 84315; 87086 ==

== ENCOUNTER → 2020-12-06 13:03 | Outpatient (BNVA) | payer MEDICARE, SELFPAY | PROVIDERS: PCP Nurse Practitioner Family; Visit Provider Nurse Practitioner Family | DX: R30.0 Dysuria (principal); K04.7 Periapical abscess without sinus; Z68.1 Body mass index [BMI] 19.9 or less, adult | CPT/HCPCS: 81000 ==

== ENCOUNTER → 2020-12-13 10:31 | Outpatient (BNVA) | payer MEDICARE, SELFPAY | PROVIDERS: PCP Nurse Practitioner Family | DX: Z79.899 Other long term (current) drug therapy (principal) | CPT/HCPCS: 80074; 87806 ==

== ENCOUNTER → 2020-12-26 07:56 | Outpatient (BNVA) | payer MEDICARE, SELFPAY | PROVIDERS: PCP Nurse Practitioner Family; Visit Provider Family Medicine | DX: Z79.899 Other long term (current) drug therapy (principal) | CPT/HCPCS: 80053; 85025; 86480 ==

== ENCOUNTER 2021-01-02 08:58 | Outpatient (CLI) | payer MEDICARE, SELFPAY ==
[2021-01-04 15:02] LABS: Quantiferon Mitogen >10.00 IU/mL; Quantiferon Nil 0.02 IU/mL; Quantiferon Plus TB2 <0.00 IU/mL; Quantiferon TB Gold NEGATIVE (NEGATIVE)
== END 2021-01-02 08:59 | disposition home or self-care (01) ==
LOC: LAB 09:11
PROVIDERS: PCP Nurse Practitioner Family; Visit Provider Nurse Practitioner Primary Care
DX: Z79.899 Other long term (current) drug therapy (principal)
CPT/HCPCS: 36415; 86480

== ENCOUNTER → 2021-06-04 16:42 | Outpatient (BNVA) | payer MEDICARE, SELFPAY | PROVIDERS: PCP Nurse Practitioner Family; Visit Provider Nurse Practitioner Family | DX: R30.0 Dysuria (principal) | CPT/HCPCS: 81000 ==

== ENCOUNTER 2021-07-17 13:19 | Outpatient (CLI) | payer MEDICARE, SELFPAY ==
[2021-07-17 13:44] LABS: Hematocrit 38.4 % (37.0-47.0); Hemoglobin 13.1 g/dL (11.5-15.3); Mean Corpuscular HGB Conc 34.1 g/dL (30.0-36.0); Mean Corpuscular Hemoglobin 30.7 pg (28.0-34.0); Mean Corpuscular Volume 89.9 fl (81-99); Platelet Count 255 10^3/cmm (130-400); Red Blood Count 4.27 10^6/uL (4.1-5.3); White Blood Count 2.5 10^3/uL (4.0-10.0)
[2021-07-17 14:19] LABS: Absolute Segmented Neutrophil 1.5 10/cmm (1.6-7.1); Band Neutrophils Absolute 0.1 10^3/cmm (0.0-1.2); Eosinophils 0 %; Lymphocytes 27 %; Monocytes Absolute 0.3 10^3/cmm (0.1-0.6); Segmented Neutrophils 60 %; Total Cells Counted 100 (0-100)
[2021-07-17 14:20] LABS: Absolute Neutrophil 1.6 10^3/cmm (1.4-6.5); Giant Platelets Trace; Platelet Estimate Normal (Normal)
== END 2021-07-17 13:20 | disposition home or self-care (01) ==
LOC: LAB 13:22
PROVIDERS: PCP Nurse Practitioner Family; Visit Provider Nurse Practitioner Family
DX: G35 Multiple sclerosis (principal)
CPT/HCPCS: 36415; 85007; 85027

== ENCOUNTER → 2021-09-20 08:42 | Outpatient (BNVA) | payer MEDICARE, SELFPAY | PROVIDERS: PCP Nurse Practitioner Family; Visit Provider Nurse Practitioner Family | DX: E03.9 Hypothyroidism, unspecified (principal); E55.9 Vitamin D deficiency, unspecified | CPT/HCPCS: 80053; 80061; 82306; 84443 ==

== ENCOUNTER → 2021-10-25 10:06 | Outpatient (BNVA) | payer MEDICARE, SELFPAY | PROVIDERS: PCP Nurse Practitioner Family; Visit Provider Nurse Practitioner Family | DX: E03.9 Hypothyroidism, unspecified (principal) | CPT/HCPCS: 84443 ==

== ENCOUNTER 2024-11-15 12:54 | Outpatient (CLI) | payer MEDICARE, SELFPAY ==
--- NOTE | 2024-11-15 13:00 | MM_ITS ---
WS: [id number] BILATERAL 3D TOMOSYNTHESIS DIGITAL SCREENING MAMMOGRAPHY WITH CAD CLINICAL INFORMATION: SCREENING HISTORY: Screening mammogram. No current complaints. COMPARISON: Baseline TECHNIQUE: Bilateral CC and MLO views. FINDINGS: The breasts are composed of heterogeneous fibroglandular density tissue, which can limit the detection of small underlying mass lesions. No suspicious mass, asymmetry, calcifications, or architectural distortion. No evidence of malignancy. Incidental benign calcifications. MM/MM [facility] tomosynthesis [id number] IMPRESSION: DENSITY: The breasts are heterogeneously dense, which may obscure small masses. BI-RADS: 2 - Benign FOLLOW UP: 1 Year Follow-up Recommend return to annual screening mammography.
== END 2024-11-15 12:55 | disposition home or self-care (01) ==
LOC: MOBLMAM 12:59
PROVIDERS: PCP Nurse Practitioner; Visit Provider Nurse Practitioner
DX: Z12.31 Encounter for screening mammogram for malignant neoplasm of breast (principal); R92.323 Mammographic fibroglandular density, bilateral breasts; R92.333 Mammographic heterogeneous density, bilateral breasts; R92.1 Mammographic calcification found on diagnostic imaging of breast
CPT/HCPCS: 77063; 77067

== ENCOUNTER 2024-11-22 12:46 | Outpatient (CLI) | payer MEDICARE, SELFPAY ==
--- NOTE | 2024-11-22 12:56 | MR_ITS ---
WS: [id number] MRI CERVICAL SPINE with and without contrast HISTORY: MIGRAINE HEADACHE/NAUSEA VOMITING COMPARISON: 07/26/2019 Technique: Multiplanar, multisequence noncontrast imaging of the cervical spine. Sagittal and axial T1 fat sat sequences post-MultiHance 13 cc IV. Normal cervical alignment with no compression fracture or significant disc space narrowing. Previously described demyelinating plaques are reidentified at the C2-3 level and at C4-5 and the posterior cord. No obvious progression. On the postcontrast imaging there is no enhancement. Craniocervical junction, C1 and C2 relationship, odontoid process and soft tissues are normal. C2-C3: No stenosis. RIGHT facet joint cyst. C3-C4: Osteophytic ridging with mild RIGHT foraminal stenosis and mild bilateral facet arthritis. C4-C5: Mild foraminal narrowing due to osteophytes. Moderate bilateral facet joint arthritis. Fluid in the RIGHT facet joint is new. C5-C6: Mild osteophytic ridging. Mild RIGHT foraminal stenosis. C6-C7: Mild foraminal stenosis. C7-T1: Normal. No paravertebral soft tissue abnormalities. No discitis or osteomyelitis. MR/MR cervical spine wo/w [id number] IMPRESSION: 1. Chronic demyelinating plaques reidentified at the C2-3 level and C4-5 level s with no obvious progression. 2. No active demyelination. 3. Progression of facet joint arthritis on the RIGHT at C2-3, C3-4 and C4-5. 4. No high-grade central stenosis. Mild foraminal stenosis as above.
--- NOTE | 2024-11-22 12:56 | MR_ITS ---
WS: [id number] MRI THORACIC SPINE with and without contrast HISTORY: MIGRAINE HEADACHE/NAUSEA VOMITING COMPARISON: 07/26/2019 TECHNIQUE: Multiplanar sequences are performed in sagittal and axial planes. Sagittal and axial T1 fat sat sequences post-MultiHance 13 cc IV. Very mild increase in thoracic kyphosis. Chronic demyelinating plaques are noted in the dorsal cord. Ill-defined plaque is noted extending over a length of 2.5 cm centered at the T3-4 vertebral bodies. Very tiny demyelinating plaque noted on the LEFT at T6. Small RIGHT lateral demyelinating plaque at the T9-10 level. Smaller plaques are best seen on the axial imaging. No cord atrophy or enlargement. No enhancing lesions. Otherwise signal within the vertebral bodies and discs and cord are normal. Conus tapers and ends at the L1-2 level. No central or foraminal stenosis. Mild facet joint arthritis in the mid to lower thoracic spine. No paravertebral soft tissue hematomas. Remote posterior LEFT rib fracture MR/MR thoracic spine wo/w [id number] IMPRESSION: 1. Stable thoracic cord demyelinating plaques as described above. 2. No areas of active demyelination or gadolinium enhancement. 3. No cord atrophy.
--- NOTE | 2024-11-22 12:56 | MR_ITS ---
WS: [id number] MRI BRAIN WITH AND WITHOUT CONTRAST HISTORY: MIGRAINE HEADACHE/NAUSEA VOMITING COMPARISON: 07/26/2019 TECHNIQUE: Multiplanar imaging performed through the brain with MultiHance 13 ml's IV. No acute infarcts are seen. Salgado-white matter differentiation is well preserved. Reidentified are patchy T2 and FLAIR signal hyperintensities in the periventricular white matter and along the corpus callosum consistent with demyelinating disease. Signal changes along the corpus callosum appear to be st able. Taking into consideration differences in technique and artifact there is been no obvious change. White matter lesions are slightly better seen today due to less artifact and motion. Minimal progression would be difficult to exclude. No significant volume loss or atrophy. Ventricles and extra-axial spaces are normal. Clivus and pituitary gland are normal. No posterior fossa white matter lesions. Craniocervical junction is normal. Postcontrast images are negative for masses or vascular malformations. Dural venous sinuses are normal. Paranasal sinuses: Well aerated with no significant disease. Mastoid air cells: Normal. Calvarium and scalp: Normal. MR/MR head wo/w con [id number] IMPRESSION: 1. No acute diffusion abnormalities or enhancing masses. 2. Supratentorial white matter changes consistent with demyelinating disease. White matter lesions along the corpus callosum and and in the periventricular w steve matter are very similar to the prior study. No obvious progression. 3. No white matter lesion enhancement to suggest active demyelinating disease. 4. No prior infarcts.
[2024-11-22] MEDS: gadobenate dimeglumine 20 mL vial IV (14:28)
== END 2024-11-22 12:47 | disposition home or self-care (01) ==
LOC: RAD 12:49
PROVIDERS: PCP Nurse Practitioner; Visit Provider Nurse Practitioner
DX: G43.909 Migraine, unspecified, not intractable, without status migrainosus (principal); G35 Multiple sclerosis; M51.84 Other intervertebral disc disorders, thoracic region; M40.294 Other kyphosis, thoracic region; M47.894 Other spondylosis, thoracic region; S22.32XD Fracture of one rib, left side, subsequent encounter for fracture with routine healing; X58.XXXD Exposure to other specified factors, subsequent encounter; G93.89 Other specified disorders of brain; M50.821 Other cervical disc disorders at C4-C5 level; M47.892 Other spondylosis, cervical region; M48.02 Spinal stenosis, cervical region; M25.78 Osteophyte, vertebrae
CPT/HCPCS: 70553; 72156; 72157